=== PATIENT | female | born 2000 | race Caucasian/White ===

== ENCOUNTER 2025-01-26 10:56 | Emergency (ER) | payer OTHER, SELFPAY ==
[2025-01-26 10:57] VITALS: BP 100/73; PULSE 120; PULSE 57; RESP 16; RESP 18; TEMP 36.6; O2SAT 96; O2SAT 98; BMI 19.4
[2025-01-26 11:15] VITALS: O2SAT 100
--- NOTE | 2025-01-26 11:15 | EKG12_ITS ---
Test Reason : REPEAT Blood Pressure : */* mmHG Vent. Rate : 58 BPM Atrial Rate : * BPM P-R Int : * ms QRS Dur : 90 ms QT Int : 374 ms P-R-T Axes : * 73 7 degrees QTcB Int : 367 ms Atrial fibrillation with slow ventricular response Abnormal ECG Confirmed by JAIME DEL CASTILLO, ALEX ([id number]), telegraph editor NOEMI CISNEROS ([id number]) on 01/27/2025 9:09:12 AM Referred By: Confirmed By: ALEX SANDOVAL MD
--- NOTE | 2025-01-26 11:19 | RAD_ITS ---
PROCEDURE: CHEST 1 VIEW (PORTABLE) 01/26/2025 REASON FOR EXAM: CHEST PAIN. Palpitations and atrial fibrillation. TECHNIQUE: Frontal view of the chest. COMPARISON: None. RAD/Chest 1 View (Portable) IMPRESSION: A Handy-Love mitral valve is in place. The cardiomediastinal silhouette is within the normal range, otherwise. No evidence of pulmonary edema. Lungs appear clear. No pleural effusion or pneumothorax is evident. No evidence of acute cardiopulmonary disease. Reading Location: [id number]
[2025-01-26 11:30] VITALS: BP 109/83; PULSE 147; RESP 15; O2SAT 100
[2025-01-26 11:32] LABS: Hematocrit 41.2 % (37-47); Hemoglobin 13.9 g/dL (12.0-15.0); Immature Granulocytes Count 0.010 X10^3/uL (0.0-0.0); Mean Corp Hgb Conc 33.7 g/dL (32-36); Mean Corpuscular Volume 81.6 fL (81-99); Mean Platelet Vol. 9.0 fl (6.2-12.0); NRBC Flagged by Analyzer 0 % (0-5); Platelet Count 394 K/mm3 (150-450); RBC Distribution Width CV 12.5 % (11.6-14.6); RBC Distribution Width SD 37.0 fl (35.1-43.9); Red Blood Count 5.05 M/mm3 (4.2-5.4); White Blood Count 4.2 K/mm3 (4.4-11.0)
--- NOTE | 2025-01-26 11:34 | ED.VIS.CHEST ---
HPI History of Present Illness Chief Complaint: Palpitations Informant: patient Onset/Context/Timing Onset: Today and Hours (Awoke with it around 4 AM but may have been in longer.) Timing: Continuous Worsened By: Nothing Relieved By: Nothing Associated Symptoms: Positive for Palpitations; Negative for Nausea, Vomiting, Diaphoresis, Dyspnea, Cough, Fever, Lightheadedness or Acid Reflux Narrative Narrative: 24-year-old female history of ASD repair through a catheter 3 weeks ago at [facility] (formerly [facility]) in [place]. She is on Plavix and aspirin. First diagnosed history of A-fib recently at [facility]. She is on metoprolol as needed she did take a dose today. She awoke 4 AM this morning with palpitations. Thinks she may have been in longer than that. Denies any chest pain or shortness of breath. Prior Similar Symptoms: Yes Recent Illness/Hospitalization: Yes CVD Risk Factors: Negative for Diabetes, Hypercholesterolemia, Family History 1' </=55 or Smoking PE Risk Factors: Negative for Recent Travel/Surgery, Prior DVT or PE, Cancer or OCP + Smoking + >/=35 TAD Risk Factors: Negative for Marfan's Syndrome [facility] Medical History Atrial fibrillation ASD (atrial septal defect) Home Medications ?Medication ?Instructions ?Recorded ?Last Taken ?Type aspirin 81 mg tablet 81 mg PO DAILY 01/26/25 Unknown History clopidogrel 75 mg tablet (Plavix) 75 mg PO DAILY 01/26/25 Unknown History Allergy/AdvReac Type Severity Reaction Status Date / Time No Known Allergies Allergy Verified 01/26/25 10:58 Family History no significant family his Surgical History H/O wisdom tooth extraction Social History household members: spouse housing: house current occupational status: employed Smoking Status: Never smoker ROS ROS ED ROS Narrative Denies recent illness. Constitutional Constitutional ED: Denies chills or fever(s) Eyes Eyes: Reports none ENT ENT ED: Denies ear pain Cardiovascular Cardiovascular: Reports as per HPI, palpitations and racing heartbeat; Denies chest pain Respiratory/Chest Respiratory/Chest: Denies cough or dyspnea Gastrointestinal Gastrointestinal: Denies abdominal pain, constipation, diarrhea, melena, nausea or vomiting Genitourinary Genitourinary ED: Denies dysuria or hematuria Musculoskeletal Musculoskeletal: Denies arthralgias or back pain Integumentary Denies abscess Neurologic Neurologic: Denies headache(s) Psychiatric Psychiatric: Denies anxiety Endocrine Endocrinology: Denies cold intolerance Hematologic/Lymphatic Hematologic/Lymphatic: Denies easy bleeding, easy bruising or lymphadenopathy Allergic/Immunologic Allergic/Immunologic ED: Denies mouth swelling, tongue swelling or urticaria EXAM Physical Exam Narrative Exam Narrative: 24-year-old female in A-fib heart rate 164 I am in the room. Current blood pressure 107/71. She does not look septic toxic. She is actually tolerating this quite well. She is in A-fib RVR. H EENT exam pupils round react light. Moist mutes members. Neck nontender no JVD. No lymphadenopathy. Lungs clear to auscultation bilaterally. Heart A-fib RVR 164. Irregular irregular. Chest wall ribs nontender. Abdomen soft nontender. Moving all 4 extremities. Normal strength. Normal range of motion. Nontender no edema. Back nontender. Patient is awake alert. Answering questions following commands. No focal motor deficits. Const Vital Signs: 01/26/25 10:57 01/26/25 10:57 01/26/25 11:14 Temperature 98 F Temperature Source Temporal Pulse Rate 120 H 57 L Respiratory Rate 18 16 Respiratory Effort Short of Breath Blood Pressure 100/73 Blood Pressure Mean 82 Pulse Ox 98 96 Oxygen Delivery Method Room Air 01/26/25 11:15 01/26/25 11:30 01/26/25 12:30 Temperature Temperature Source Pulse Rate 147 H 88 Respiratory Rate 15 17 Respiratory Effort Blood Pressure 109/83 H 93/56 L Blood Pressure Mean 91 69 Pulse Ox 100 100 100 Oxygen Delivery Method Room Air 01/26/25 13:19 Temperature 98.2 F Temperature Source Pulse Rate 88 Respiratory Rate 17 Respiratory Effort Blood Pressure 93/56 L Blood Pressure Mean 68 Pulse Ox 100 Oxygen Delivery Method Positive well nourished and well developed; Negative for obese, cachectic, contractures or unkempt General Appearance ED: well developed; Negative for unkempt, cachectic, contractures or pallor Nutritional Appearance: Negative for cachectic or obese HEENT Reports moist mucous membranes normocephalic and atraumatic Eyes PERRL and EOMs intact bilaterally Neck no lymphadenopathy, supple and no JVD Chest Wall inspection of chest normal and palpation of chest normal Resp normal respiratory effort and clear to auscultation bilaterally Cardio S1 normal heart sound, S2 normal heart sound and no murmurs; Negative for regular rate or regular rhythm Rate: tachycardic and other Other Details: A-fib RVR at 164. Peripheral Pulses: pulses 2+ throughout GI normal to inspection, nondistended, normoactive bowel sounds, soft to palpation, non-tender, non-distended and no masses Back/Spine no CVA tenderness and no thoracic nor lumbar tenderness Extremity normal to inspection General Extremety ED: Negative for edema, pulses abnormal or tenderness General Extremity: Negative for edema or pulses abnormal Neuro oriented x3 and CN's II-XII intact bilaterally Sensorium / Orientation: awake, alert, oriented to person, oriented to place and oriented to time; Negative for confused, lethargic or stuporous Motor Exam: strength 5/5 throughout Psych mental status grossly normal Appearance: Negative for unkempt Attitude: No agitated Mood & Affect: Negative for depressed, anxious or tearful Skin no rashes or lesions noted and no wounds General Skin Exam: Negative for jaundice or pallor Rashes: No rashes noted Trauma: Negative for abrasion MDM MDM MDM Narrative Medical decision making narrative: 24-year-old female with recurrent A-fib RVR. Cardiac workup. She will be given IV fluids due to her pressure being around 100. IV Cardizem. Repeat exam patient doing well around 1 PM. Clinically feels well. After given the IV Cardizem her rates controlled but she went from A-fib to intermittent atrial flutter. She has been up ambulating. Her blood pressure runs between 80-100 systolic she normally runs around 100. She is not lightheaded or dizzy. She is on Plavix and aspirin and a beta-flora at home. She has appointment to see her [facility] powerhouse mechanic helper tomorrow. She would prefer to be discharged and follow-up. I am comfortable that plan. History & Record Review Discussion w/independent historian: Patient Additional record(s) reviewed:: No prior records Lab Data Attestation: I reviewed the patient's lab results. Lab results narrative: CBC shows a white count of 4. H&H of 13 and 41. Platelets 394. Chemistries show gap of 12. BUN/creatinine 12 and 0.5. Glucose 104. Troponin normal at 10. TSH at 0.85. Chest x-ray shows ASD patch. Normal cardiac silhouette. Normal lung murdock. Labs: Laboratory Results - last 24 hr 01/26/25 11:16 WBC 4.2 L RBC 5.05 Hgb 13.9 Hct 41.2 MCV 81.6 MCH 27.5 MCHC 33.7 RDW Std Deviation 37.0 RDW Coeff of Osmani 12.5 Plt Count 394 MPV 9.0 Immature Gran % (Auto) 0.200 Neut % (Auto) 52.5 Lymph % (Auto) 36.5 Mcpherson % (Auto) 8.6 Eos % (Auto) 1.7 Baso % (Auto) 0.5 Absolute Neuts (auto) 2.2 Absolute Lymphs (auto) 1.53 Nucleated RBC % 0 Sodium 138 Potassium 3.9 Chloride 105 Carbon Dioxide 22.1 Anion Gap 12 BUN 12 Creatinine 0.50 L Estim Creat Clear Calc 140.51 Est GFR (MDRD) Non-Af 134 BUN/Creatinine Ratio 23.8 H Glucose 104 H Calcium 9.4 Troponin T High Sens 10 TSH 0.857 Radiography Chest X-Ray - ED: 1 View, Read by ED Physician, Read by Radiologist, Normal, Heart, Lungs, Mediastinum, Bony Structures, No Acute Disease and Chronic Changes Diagnostic Testing: Clinical Impression(s) from Imaging Studies Chest X-Ray 01/26/25 11:19 IMPRESSION: A Handy-Love mitral valve is in place. The cardiomediastinal silhouette is within the normal range, otherwise. No evidence of pulmonary edema. Lungs appear clear. No pleural effusion or pneumothorax is evident. No evidence of acute cardiopulmonary disease. Reading Location: [address] Chest x-ray comfortable, single view shows normal aorta. Normal mediastinum. Normal cardiac silhouette. ASD patch. Lungs appear normal. Interpreted by myself and radiologist. Rhythm Strip Rhythm Strip: A-fib Rate: 147 Ectopy: None EKG Initial EKG: Attestation: I personally reviewed and interpreted this EKG as follows: Interpretation: No Acute Injury Pattern and Atrial Fibrillation Comments: A-fib RVR rate 147 no acute signs of NH or ischemia. Follow-up EKG: Attestation: I personally reviewed and interpreted this EKG as follows: Interpretation: Atrial Flutter Comments: Atrial flutter rate of 58. Discharge Plan Triage Chief Complaint: Palpitations ED Provider: Dionisio Zamora Dx/Rx/DC Orders Clinical Impression: A-fib, History of atrial septal defect repair Instructions: ED AFIB, ED Atrial Flutter Prescriptions: No Action clopidogrel [Plavix] 75 mg tablet 75 mg PO DAILY aspirin 81 mg tablet 81 mg PO DAILY Primary Care Provider: Regina Hansen NP Referrals: Regina Hansen NP, TRAVELING SECRETARY-C [Primary Care Provider, Family Practice] Activity Restrictions/Additional Instructions: Take your normal medications as prescribed. Follow-up with a powerhouse mechanic helper from [facility] tomorrow. Today you had atrial fibrillation and intermittent atrial flutter. Showed him the copies of your EKGs. Plenty of fluids. I would not drive if you are feeling lightheaded at all. Return if you are feeling worse. Print Language: Japanese Disposition Disposition: Home, Self Care
[2025-01-26] MEDS: 0.9% Normal Saline (500mL Bag) 500 ML 999 ML IV (11:41)
--- NOTE | 2025-01-26 12:08 | EKG12_ITS ---
Test Reason : A FIB Blood Pressure : */* mmHG Vent. Rate : 147 BPM Atrial Rate : * BPM P-R Int : * ms QRS Dur : 86 ms QT Int : 304 ms P-R-T Axes : * 82 -33 degrees QTcB Int : 475 ms Critical Test Result: High HR Atrial fibrillation with rapid ventricular response ST & T wave abnormality, consider anterior ischemia Abnormal ECG Confirmed by JAIME DEL CASTILLO, ALEX ([id number]), editor managing director NOEMI CISNEROS ([id number]) on 01/27/2025 9:17:41 AM Referred By: IVONNE/TERRELL Confirmed By: ALEX SANDOVAL MD
[2025-01-26 12:12] LABS: Anion Gap 12 (5-15); BUN 12 mg/dL (4-19); BUN/Creat Ratio 23.8 RATIO (10-20); Calcium,Total 9.4 mg/dL (7.6-11.0); Carbon Dioxide 22.1 mmol/L (21.0-32.0); Chloride 105 mmol/L (98-108); Estimated Creatinine Clearance 140.51 ml/min (50-250); Glucose 104 mg/dL (70-99); Potassium 3.9 mmol/L (3.3-5.1); Troponin T High Sensitivity 10 ng/L (<=14)
[2025-01-26 12:30] VITALS: BP 93/56; PULSE 88; RESP 17; O2SAT 100
[2025-01-26 13:19] VITALS: BP 93/56; PULSE 88; RESP 17; TEMP 36.8; O2SAT 100
== END 2025-01-26 13:27 | disposition home or self-care (01) ==
PROVIDERS: Emergency Provider Emergency Medicine; PCP Nurse Practitioner Family; Visit Provider Emergency Medicine
DX: I48.91 Unspecified atrial fibrillation (principal); I48.92 Unspecified atrial flutter; Z87.74 Personal history of (corrected) congenital malformations of heart and circulatory system; Z79.02 Long term (current) use of antithrombotics/antiplatelets; Z79.82 Long term (current) use of aspirin
CPT/HCPCS: 71045; 80048; 84443; 84484; 85025; 93005; 96361; 96374; 99284; A4216